=== PATIENT | male | born 1950 | race Caucasian/White ===

== ENCOUNTER 2018-08-09 07:11 | Day surgery (SDC) | payer OTHER ==
[~2018-08-09 07:11] MED LIST: CEFAZOLIN/SWI 2gm 2 GM/20 ML SYR IV SCH
[2018-08-09] MEDS ORDERED: Ringers Lactate 1,000 ML IV ONE ×3 (07:32→12:32)
[2018-08-09] MEDS ORDERED: BUPIVACA 0.25%/EPI 0.0005% MDV 50 ML VIAL ONE (08:30)
[2018-08-09] MEDS ORDERED: MIDAZOLAM HCL 2 MG/2 ML INJ ONE ×2 (08:33→12:05)
[2018-08-09] MEDS ORDERED: PROPOFOL 200 MG/20 ML VIAL IV ONE (08:37)
[2018-08-09] MEDS ORDERED: FENTANYL CITR 100 MCG/2 ML ONE ×2 (08:38→09:51)
[2018-08-09] MEDS ORDERED: LIDOCAINE 2% MPF 5 ML VIAL ONE (08:38)
[2018-08-09] MEDS ORDERED: ROCURONIUM 50 MG/5 ML VIAL IV ONE ×3 (08:39→09:53)
[2018-08-09] MEDS ORDERED: ONDANSETRON HCL 40 MG/20 ML VIAL ONE (08:39)
[2018-08-09] MEDS ORDERED: EPHEDRINE SULF 50 MG/10 ML SYR ONE (09:57)
[2018-08-09] MEDS ORDERED: GLYCOPYRROLATE 0.2 MG/ML SYR ONE ×2 (11:37→12:56)
[2018-08-09] MEDS ORDERED: NEOSTIGMINE 1 MG/ML -5 ML SYRINGE ONE (11:37)
--- NOTE | 2018-08-09 11:45 | P.OP ---
Cad Engineer: Viraj Dai Preoperative diagnosis: Bilateral Recurrent Inguinal Hernias Postoperative diagnosis: Bilateral Recurrent Inguinal Hernias Primary procedure: Open Repair of Bilateral Recurrent Inguinal Hernias Anesthesia: GETA + Local Estimated blood loss: <10cc Specimen: Left hernia sac, cord lipoma Findings: Large Bilateral inguinal hernias, left with sigmoid colon Complications: None Transferred to: Recovery Room Condition: Good
[2018-08-09] MEDS: MEPERIDINE HCL 50 MG/ML AMP ONE ×2 (12:28→12:34)
[2018-08-09] MEDS ORDERED: ALBUTEROL 2.5 MG/3 ML NEB SOL ONE (12:39)
[2018-08-09] MEDS ORDERED: MEPERIDINE HCL 50 MG/ML AMP ONE (12:46)
[2018-08-09] MEDS ORDERED: KETOROLAC 30 MG/ML INJ ONE (13:20)
[2018-08-09] MEDS ORDERED: HYDROCODONE/APAP 7.5/325 MG TAB ONE (14:21)
--- NOTE | 2018-08-09 22:20 | OP ---
Date of Procedure: 08/09/2018 Surgeon: Mick Clemente MD, Preoperative Diagnosis: Bilateral recurrent inguinal hernias. Postoperative Diagnosis: Bilateral recurrent inguinal hernias. Procedure Performed: Open repair of bilateral inguinal hernias. Anesthesia: General endotracheal plus local with 0.25% Marcaine. Estimated Blood Loss: Less than 2 cc. Specimen: Left hernia sac and left cord lipoma. Findings: Large bilateral inguinal hernias, left greater than right. Left inguinal hernia was a rec urrent with tissue repair in the 1950s by report and the tissue planes were obliterated. There was n o evidence of external oblique aponeurosis and the sigmoid colon was firmly adherent to a large herni a sac. The right inguinal hernia had a smaller indirect inguinal hernia with no abdominal contents c ontained within. Complications: None. Disposition: Transferred to recovery room in good condition. Procedure In Detail: After informed consent was obtained, the patient was brought to the operating r oom, prepped and draped in the usual sterile fashion. After adequate anesthesia was achieved, an are a of the left inguinal region was anesthetized with 0.25% Marcaine with epinephrine, sharply incised and dissection continued down through Camper's fat and Gabriel's fascia where the external oblique apo neurosis should have been. However, this tissue plane had been obscured by scar tissue. I dissected bluntly down to expose a large hernia sac, which contained portions of the sigmoid colon. This was circumferentially dissected and the hernia sac was opened. The hernia defect was found to be quite l arge in an indirect fashion. I then circumferentially dissected the hernia sac from the sigmoid colo n and the spermatic cord and structures from the sigmoid colon as well. I then reduced the sigmoid c olon to the normal anatomic position and placed a [place] under the spermatic cord and structures. T hey were firmly adherent to the anterior surface of the sigmoid colon, however, and were difficult to dissect at this time. However, I was able to do so without compromising the vasculature and the vas deferens during the dissection. After placing the patient in steep Trendelenburg, I was able to red uce the sigmoid colon to the normal anatomic position and all preperitoneal fat to the normal anatomi c position after removing the hernia sac and a cord lipoma. I then finger swept the area in the prep eritoneal space and got the large Bard Marlex mesh plug and patch hernia repair system and placed the plug into the preperitoneal space, securing it circumferentially to the shelving edge of the fascia over the pubic tubercle as well as the posterior rectus sheath on the medial aspect and circumferenti ally around to the shelving edge with good approximation of the tissues. The patient was then return ed to the normal anatomic position and the mesh was found to be in good position without any addition al protrusion of the abdominal contents. I digitized the area multiple times, irrigated copiously an d suctioned it dry. The stitch use was an 0 PDS suture and once again it was secured in an interrupt ed fashion. I got the large hernia patch system and secured it to the fascia over the pubic tubercle overlying the previous mesh and securing it to both medial and lateral shelving edges using the same said 0 PDS suture in an interrupted fashion now. The deep inguinal ring was then reconstituted usin g the patch system without compromise of the vasculature or the spermatic cord structures. The testi samra was then reduced to the normal anatomic position and the mesh was found to be in good position. I then irrigated the area once again and closed Camper's fat and Gabriel's fascia over the top on bloc k using a 3-0 Vicryl in a running fashion. I then placed deep dermal sutures in an interrupted fashi on using the same set 3-0 Vicryl suture and the skin was closed with a 4-0 Monocryl in a running fash ion. Dermabond placed over the top. Attention was then turned to the right inguinal region. Simila rly, this area was anesthetized, sharply incised down through Camper's fat and Gabriel's fascia. Elec trocautery was used to achieve hemostasis down to the area where the external oblique aponeurosis maria eugenia uld have been. However, once again, this was not encountered. I continued dissection to easily expo se the spermatic cord and structures. An indirect inguinal hernia was appreciated at this time of me dium size. I dissected it free from the spermatic cord and structures and reduced into the normal an atomic position without the need for opening of the hernia sac. I then placed the hernia plug system in a similar fashion, although this was a medium plug placed in the preperitoneal space after finger sweep of the area. I secured this circumferentially around with good approximation of the tissues w ith the same said interrupted 0 PDS suture and had good approximation of the tissues without compromi se to the spermatic cord and structures. I then turned attention to the patch. The medium patch was placed on the fascia of the pubic tubercle and secured at this point, as well as the medial and late ral shelving edges and the deep inguinal ring was reconstituted in a similar fashion. The area was c opiously irrigated once again and the Camper's fat and Gabriel's fascia were closed over the top on bl ock using a 3-0 Vicryl in a running fashion. The deep dermal layer was then closed with an interrupt ed 3-0 Vicryl in interrupted fashion and the subcutaneous layer was closed with 4-0 Monocryl in a run maggie fashion. Dermabond placed over the top. The patient tolerated the procedure well without evide nce of complication, transferred to the PACU in good condition. All counts were correct at the end o f the case. ESTRADA/JACKY Voice ID: [id number] Report ID: [id number]
== END 2018-08-09 15:15 | disposition home or self-care (01) ==
LOC: OR 07:11
PROVIDERS: ATTEND Surgery
PROC: 0YUA0JZ Supplement Bilateral Inguinal Region with Synthetic Substitute, Open Approach (ICD-10-PCS; principal; 2018-08-09 08:30)
DX: K40.21 Bilateral inguinal hernia, without obstruction or gangrene, recurrent (principal); I48.2 Chronic atrial fibrillation; I10 Essential (primary) hypertension; J44.9 Chronic obstructive pulmonary disease, unspecified; G47.33 Obstructive sleep apnea (adult) (pediatric); G25.81 Restless legs syndrome; F17.210 Nicotine dependence, cigarettes, uncomplicated; Z79.01 Long term (current) use of anticoagulants; Z86.73 Personal history of transient ischemic attack (TIA), and cerebral infarction without residual deficits; Z80.9 Family history of malignant neoplasm, unspecified; Z83.3 Family history of diabetes mellitus; Z82.49 Family history of ischemic heart disease and other diseases of the circulatory system
CPT/HCPCS: 49520; 88302; J0690; J2175 ×2; J2250 ×2; J2405; J2710; J3010 ×2; J2704

== ENCOUNTER 2019-03-07 07:10 | Day surgery (SDC) | payer OTHER ==
[2019-03-07] MEDS ORDERED: CEFAZOLIN/SWI 2gm 2 GM/20 ML SYR ONE (07:39)
[2019-03-07] MEDS ORDERED: Ringers Lactate 1,000 ML IV ONE ×2 (07:39→11:37)
[2019-03-07] MEDS ORDERED: FENTANYL CITR 100 MCG/2 ML ONE (07:43)
[2019-03-07] MEDS ORDERED: MIDAZOLAM HCL 2 MG/2 ML INJ ONE ×2 (07:43→12:43)
[2019-03-07] MEDS ORDERED: PROPOFOL 200 MG/20 ML VIAL IV ONE (07:43)
[2019-03-07] MEDS ORDERED: LIDOCAINE 2% MPF 5 ML VIAL ONE ×2 (07:44→11:25)
[2019-03-07] MEDS ORDERED: ALBUTEROL INHALER 60 PUFF/8 GM IH ONE (07:45)
[2019-03-07] MEDS ORDERED: BUPIVACA 0.25%/EPI 0.0005% MDV 50 ML VIAL ONE (08:11)
[2019-03-07] MEDS ORDERED: EPHEDRINE SULF 50 MG/ML VIAL ONE (08:49)
--- NOTE | 2019-03-07 11:40 | P.OP ---
Preoperative diagnosis: Recurrent Right inguinal hernia Postoperative diagnosis: Recurrent Right inguinal hernia Primary procedure: Open Repair of Recurrent Right inguinal hernia Anesthesia: GETA + Local Estimated blood loss: <10cc Specimen: mesh Findings: Significant Scar, tissue tore adjacent to mesh Complications: None Implants: Large Bard Perfix Plug and Patch Mesh Transferred to: Recovery Room Condition: Good
[2019-03-07] MEDS: MEPERIDINE HCL 25 MG/0.5 ML ONE ×4 (11:49→12:10)
[2019-03-07] MEDS: FENTANYL CITR 100 MCG/2 ML ONE ×2 (12:50→13:00)
[2019-03-07] MEDS ORDERED: METHOCARBAMOL 1,000 MG in NA CHLORIDE 0.9% 100 ML IV ONE (13:30)
--- NOTE | 2019-03-07 23:44 | OP ---
Date of Procedure: 03/07/2019 Surgeon: Mick Clemente MD, Preoperative Diagnosis: Recurrent right inguinal hernia. Postoperative Diagnosis: Recurrent right inguinal hernia. Procedures Performed: 1.Open repair of right recurrent inguinal hernia. 2.Excision of left perineal skin tag. Anesthesia: General endotracheal plus local. Estimated Blood Loss: Less than 10 cc. Specimen: Mesh from previous surgery. Findings: 1.Significant scar tissue in the area and inflammatory response to mesh. 2.It appears that the plug system had pulled laterally and allowed the hernia to recur as the tissue had torn on the lateral aspect allowing the hernia recurrence. This was adjacent to the previous me sh. Complications: None. Implants: Large Bard PerFix plug and patch mesh system. Disposition: Transferred to recovery room in good condition. Procedure In Detail: After informed consent was obtained, the patient was brought to the operating r oom, prepped and draped in the usual sterile fashion. After adequate anesthesia was achieved, an are a of the right inguinal region through the previous scar was incised with a 10-blade down to subcutan eous tissues. Dissection continued down through Camper fat and Gabriel fascia to the level of externa l oblique aponeurosis, which was essentially obliterated at this time. The ilioinguinal nerve was no t identified. The spermatic cord structures however were encircled and identified quite readily. Af ter this was encircled with a Dawson, dissection continued down toward the deep inguinal ring. Afte r the deep inguinal ring was inspected, a defect was noted on the lateral aspect where the previous p lug system was placed and it appears that the mesh had extruded but was still maintained on the media l aspect, almost like a flapping door type opening with a hernia recurrence. This hernia was then re duced back to the normal anatomic position after careful dissection and removal of previous mesh from the spermatic cord and structures as well as the previously placed PerFix plug system were removed. The hernia was then cleansed circumferentially until a nice preperitoneal space was identified as a landing zone. A large Bard PerFix plug system was brought and hydrated appropriately, and 4 anchorin g sutures were placed circumferentially around the deep inguinal ring, to the fascia circumferentiall y. The PerFix plug system was then placed through this ring and secured at this time with the force sutures and it was imbricated over the top by securing the tails of the sutures after being tied down to the mesh after it was flat in the preperitoneal position. At this time, the patch system was the n brought in, hydrated appropriately, sized appropriately for the spermatic cord structures. The quiana p inguinal ring was reconstructed using 0 PDS on the medial and lateral shelving edges beginning at t he conjoined tendon. Both medial and lateral shelving edges were secured using the above-stated 0 PD S suture with good approximated tissues. The area was copiously irrigated multiple times, was comple tely dry and a 3-0 Vicryl was used to close the Camper fat, Gabriel fascia en bloc over the top includ ing the remnant of the external oblique aponeurosis with good approximation. The skin was then irrig ated once again and closed with a 4-0 Monocryl in a running fashion, Dermabond placed over top. The patient tolerated the procedure well. At this point, the patient then had a skin tag on the left asp ect of the perineum which was cleansed once again, trimmed with a Metzenbaum scissor and cleansed. T here was no bleeding and no hemostatic maneuvers. A Dermabond was then placed over the top of this a raquel as well. The patient tolerated the procedure well without evidence of complication and transferr ed to the PACU in good condition. All counts were correct at the end of the case. ESTRADA/JACKY Voice ID: [id number] Report ID: [id number]
== END 2019-03-07 15:10 | disposition home or self-care (01) ==
LOC: OR 07:10
PROVIDERS: ATTEND Surgery
PROC: 0HB9XZZ Excision of Perineum Skin, External Approach (ICD-10-PCS; 2019-03-07)
PROC: 0YU50JZ Supplement Right Inguinal Region with Synthetic Substitute, Open Approach (ICD-10-PCS; principal; 2019-03-07 08:30)
DX: K40.91 Unilateral inguinal hernia, without obstruction or gangrene, recurrent (principal); D22.5 Melanocytic nevi of trunk; E55.9 Vitamin D deficiency, unspecified; I48.2 Chronic atrial fibrillation; I10 Essential (primary) hypertension; J44.9 Chronic obstructive pulmonary disease, unspecified; N40.0 Benign prostatic hyperplasia without lower urinary tract symptoms; G47.33 Obstructive sleep apnea (adult) (pediatric); G25.81 Restless legs syndrome; F17.210 Nicotine dependence, cigarettes, uncomplicated; Z79.01 Long term (current) use of anticoagulants; Z79.899 Other long term (current) drug therapy; Z86.73 Personal history of transient ischemic attack (TIA), and cerebral infarction without residual deficits
CPT/HCPCS: 49520; 11200; 88300; 88305; J2704; J2250 ×2; J3010 ×2; J2175 ×2; J0690; J2800

== ENCOUNTER 2019-06-11 17:47 | Emergency (ER) | payer OTHER ==
[2019-06-11] MEDS ORDERED: NA CHLORIDE 0.9% 1,000 ML ONE (18:18)
[2019-06-11] MEDS ORDERED: KETOROLAC 30 MG/ML INJ ONE (18:18)
[2019-06-11] MEDS ORDERED: ONDANSETRON 4 MG/2 ML VIAL ONE (18:18)
[2019-06-11 18:26] LABS: Urine Blood NEGATIVE (NEG); Urine Glucose NEGATIVE (NEG); Urine Protein NEGATIVE (NEG); Urine Specific Gravity >1.030 (1.005-1.030); Urine pH 5.5 (5.0-7.0)
[2019-06-11 18:32] LABS: Basophils % 0.5 % (0-1.3); Hematocrit 44.5 % (39.6-49.0); Lymphocytes % 26.7 % (15.3-44.8); MPV 9.7 fL (7.6-11.3); RBC Red Blood Cell Count 4.73 M/uL (4.33-5.43)
[2019-06-11 18:51] LABS: Albumin 4.1 g/dL (3.4-5.0); Bilirubin Total 0.5 mg/dL (0.2-1.0); Protein, Total 7.8 g/dL (6.4-8.2)
--- NOTE | 2019-06-11 18:59 | RAD REPORT ---
EXAM DESCRIPTION: CT - Stone Protocol - 06/11/2019 6:30 pm CLINICAL HISTORY: Abdominal pain, left flank pain COMPARISON: CT January 2019 TECHNIQUE: Axial 5 mm thick images were obtained without oral or IV contrast. The qtdkh-gb-iwck span s the entirety of the system including uppermost abdomen and lung bases. All CT scans are performed using dose optimization technique as appropriate and may include automated exposure control or mA/KV adjustment according to patient size. FINDINGS: No hydronephrosis is present and no obstructing ureteral calculi. No suspicious renal mass es. Isodense masses and pyelonephritis are not excluded on a stone protocol CT scan. Bilateral nonobs tructing calyx calculi are present 3 mm or less in size. Cyst in the lateral right kidney is unchange d. Minimal perinephric stranding is present. Urinary bladder is fully contracted limiting assessment. No bladder calculi. Numerous pelvic phleboliths are present. No significant adrenal finding. Imaged portions of the liver, spleen and pancreas show no suspicious findings on non-contrast imaging . No gallbladder or biliary tree abnormality identified. No suspicious bowel findings. Appendix is normal. No active GI process seen. No mass or bulky lymphadenopathy. Patient has significant scar tissue formation at left inguinal nia ia repair site. There is a similar soft tissue scarring at the right inguinal hernia repair site whic h is new from January 2019. There appears to be a minimal fluid component on the right. No free air or pneumatosis. No abnormal free fluid. No significant bony abnormality. IMPRESSION: No hydronephrosis or obstructing calculi. Patient has nonobstructing calyx calculi. Isodense masses and pyelonephritis are not excluded on a stone protocol study. Cystitis is not exclud ed. Prominent scarring changes at each inguinal canal hernia repair site. Right-sided changes are new fro m the January comparison. There may be a small quantity of fluid trapped near the origin of the right i nguinal canal. No acute GI process. Gallbladder, biliary tree and pancreas without acute finding. Isodense masses and pyelonephritis are not excluded on stone protocol technique.
--- NOTE | 2019-06-11 19:42 | EDPHYS ---
Physician Documentation [facility] Name: Andrea Rausch Age: 68 yrs Sex: Male : 1950 Arrival Date: 06/11/2019 Time: 17:49 Bed 26 Private MD: Bradley Baig ED Physician Jordan Deng HPI: 06/11 18:19 This 68 yrs old Male presents to ER via Ambulatory with complaints of ps1 Possible Kidney Stone, Hernia. 18:19 patient has a history of stones and bilateral inguinal hernia repair. Now presenting ps1 with left flank pain. Described as throbbing, fluctuating, radiating to groin. Previously seen by Tj and had litho appx 10 years ago. No fever or urinary complaints. Hx of chronic infection of right leg that he takes bactrim for daily. . Historical: - Allergies: 18:00 No Known Allergies; hb - Home Meds: 18:00 Coreg Oral [Active]; Hydrochlorothiazide Oral [Active]; Eliquis oral oral [Active]; hb Tramadol Oral [Active]; - PMHx: 18:00 Hypertension; hb - PSHx: 18:00 Knee - Right; Back; Hernia repair; hb - Immunization history:: Adult Immunizations up to date. - Social history:: Smoking status: Patient/guardian denies using tobacco. - Ebola Screening: : No symptoms or risks identified at this time. ROS: 18:19 Constitutional: Negative for fever, chills, and weight loss, Eyes: Negative for injury, ps1 pain, redness, and discharge, Cardiovascular: Negative for chest pain, palpitations, and edema, Respiratory: Negative for shortness of breath, cough, wheezing, and pleuritic chest pain, Abdomen/GI: Negative for abdominal pain, nausea, vomiting, diarrhea, and constipation, MS/Extremity: Negative for injury and deformity, Skin: Negative for injury, rash, and discoloration, Neuro: Negative for headache, weakness, numbness, tingling, and seizure. 18:19 : Positive for flank pain. Exam: 18:19 Constitutional: This is a well developed, well nourished patient who is awake, alert, ps1 and in no acute distress. Head/Face: Normocephalic, atraumatic. Eyes: Pupils equal round and reactive to light, extra-ocular motions intact. Lids and lashes normal. Conjunctiva and sclera are non-icteric and not injected. Cardiovascular: Regular rate and rhythm. No gallops, murmurs, or rubs. Normal PMI, no JVD. No pulse deficits. Respiratory: Lungs have equal breath sounds bilaterally, clear to auscultation and percussion. No rales, rhonchi or wheezes noted. No increased work of breathing, no retractions or nasal flaring. Abdomen/GI: Soft, non-tender, with normal bowel sounds. No distension or tympany. No guarding or rebound. No evidence of tenderness throughout. Back: No spinal tenderness. No costovertebral tenderness. Full range of motion. MS/ Extremity: Pulses equal, no cyanosis. Neurovascular intact. Full, normal range of motion. Neuro: Awake and alert, GCS 15, oriented to person, place, time, and situation. Cranial nerves II-XII grossly intact. Sensory grossly intact. Vital Signs: 18:00 BP 132 / 97; Pulse 70; Resp 16; Temp 97.9; Pulse Ox 94% on R/A; Weight 127.01 kg; hb Height 6 ft. 3 in. (190.50 cm); Pain 9/10; 19:33 BP 115 / 85; Pulse 69; Resp 18; Pulse Ox 94% on R/A; mg2 20:15 BP 118 / 86; Pulse 71; Resp 15; Pulse Ox 96% on R/A; rv 18:00 Body Mass Index 35.00 (127.01 kg, 190.50 cm) hb MDM: 18:21 Patient medically screened. ps1 19:37 Data reviewed: vital signs, nurses notes, lab test result(s), radiologic studies, and ps1 as a result, I will discharge patient. Counseling: I had a detailed discussion with the patient and/or guardian regarding: the historical points, exam findings, and any diagnostic results supporting the discharge/admit diagnosis, the presence of at least one elevated blood pressure reading (>120/80) during this emergency department visit, lab results, radiology results, the need for outpatient follow up, to return to the emergency department if symptoms worsen or persist or if there are any questions or concerns that arise at home. ED course: Abnormal CT findings of kidney. No obstructing stone. Urine clean. Needs OP Ultrasound. Follow up with PCP or Dr. Spencer. Stable for la. Home with flomax, anaprox, zofran.. 06/11 18:14 Order name: CBC with Diff ps1 06/11 18:14 Order name: CMP; Complete Time: 19:31 ps1 06/11 18:14 Order name: CT Stone Protocol ps1 06/11 18:21 Order name: Urine Dipstick--Ancillary (enter results); Complete Time: 19:31 em1 06/11 18:14 Order name: Urine Dipstick-Ancillary (obtain specimen); Complete Time: 18:20 ps1 06/11 18:16 Order name: IV Start; Complete Time: 18:28 tw2 Administered Medications: 18:20 Drug: Zofran 4 mg Route: IVP; Site: right antecubital; tw2 20:14 Follow up: Response: No adverse reaction rv 18:20 Drug: NS 0.9% 1000 ml Route: IV; Rate: 1 bolus; Site: right antecubital; tw2 20:14 Follow up: IV Status: Completed infusion; IV Intake: 1000ml rv 18:22 Drug: TORadol - Ketorolac 15 mg Route: IVP; Site: right antecubital; tw2 20:14 Follow up: Response: No adverse reaction; Pain is decreased rv 20:13 Drug: [place] (7.5 mg-325 mg) 1 tabs {Note: rass 0.} Route: PO; rv 20:14 Follow up: Response: Medication administered at discharge. rv Disposition: 06/11/19 19:36 Discharged to Home. Impression: Left flank pain, Abnormal CT ( Needs OP Renal US). - Condition is Stable. - Discharge Instructions: Flank Pain, Adult. - Prescriptions for Anaprox DS 550 mg Oral Tablet - take 1 tablet by ORAL route every 12 hours As needed; 20 tablet. Zofran 4 mg Oral Tablet - take 1 tablet by ORAL route every 12 hours As needed; 20 tablet. Flomax 0.4 mg Oral Capsule, Sust. Release 24 hr - take 1 capsule by ORAL route once daily 1/2 hour following the same meal each day; 30 capsule. - Medication Reconciliation Form, Thank You Letter, Antibiotic Education, Prescription Opioid Use form. - Follow up: Bradley Baig, ; When: As needed; Reason: Recheck today's complaints, Continuance of care, Re-evaluation by your physician. Follow up: Emergency Department; When: As needed; Reason: Fever > 102 F, Worsening of condition. - Problem is new. - Symptoms have improved. Signatures: Dispatcher [employer] EDMS Ila Lou, HANSEL RN Hattie Ball RN RN tw2 Jordan Deng MD MD ps1 Jayme Chan RN RN rv Corrections: (The following items were deleted from the chart) 20:16 19:36 06/11/2019 19:36 Discharged to Home. Impression: Left flank pain; Abnormal CT ( rv Needs OP Renal US). Condition is Stable. Forms are Medication Reconciliation Form, Thank You Letter, Antibiotic Education, Prescription Opioid Use. Follow up: Bradley Baig; When: As needed; Reason: Recheck today's complaints, Continuance of care, Re-evaluation by your physician. Follow up: Emergency Department; When: As needed; Reason: Fever > 102 F, Worsening of condition. Problem is new. Symptoms have improved. ps1
--- NOTE | 2019-06-11 19:42 | ER ---
Nurse's Notes [facility] Name: Andrea Rausch Age: 68 yrs Sex: Male : 1950 Arrival Date: 06/11/2019 Time: 17:49 Bed 26 Private MD: Bradley Baig Diagnosis: Left flank pain;Abnormal CT ( Needs OP Renal US) Presentation: 06/11 17:57 Presenting complaint: Left flank pain that radiates to bilateral groin and nausea x 3 hb days. Denies fever/urinary s/s. Transition of care: patient was not received from another setting of care. Onset of symptoms was June 09, 2019. Risk Assessment: Do you want to hurt yourself or someone else? Patient reports no desire to harm self or others. Initial Sepsis Screen: Does the patient meet any 2 criteria? No. Patient's initial sepsis screen is negative. Does the patient have a suspected source of infection? No. Patient's initial sepsis screen is negative. Care prior to arrival: None. 17:57 Method Of Arrival: Ambulatory hb 17:57 Acuity: GIACOMO 3 hb Historical: - Allergies: 18:00 No Known Allergies; hb - Home Meds: 18:00 Coreg Oral [Active]; Hydrochlorothiazide Oral [Active]; Eliquis oral oral [Active]; hb Tramadol Oral [Active]; - PMHx: 18:00 Hypertension; hb - PSHx: 18:00 Knee - Right; Back; Hernia repair; hb - Immunization history:: Adult Immunizations up to date. - Social history:: Smoking status: Patient/guardian denies using tobacco. - Ebola Screening: : No symptoms or risks identified at this time. Screenin:01 Abuse screen: Denies threats or abuse. Nutritional screening: No deficits noted. tw2 Tuberculosis screening: No symptoms or risk factors identified. Fall Risk Secondary diagnosis (15 points) impaired mobility. Assessment: 18:04 General: Appears in no apparent distress. Behavior is calm, cooperative, appropriate tw2 for age. Pain: Complains of pain in abdomen. Neuro: Level of Consciousness is awake, alert, obeys commands, Oriented to person, place, time, situation. Cardiovascular: Heart tones S1 S2 Patient's skin is warm and dry. Respiratory: Airway is patent Respiratory effort is even, unlabored, Respiratory pattern is regular, symmetrical, Breath sounds are clear bilaterally. GI: Abdomen is round obese, Bowel sounds present X 4 quads. Abd is soft X 4 quads Reports lower abdominal pain, nausea. GI: "it started in my groin area and now its on both sides of my back". : No signs and/or symptoms were reported regarding the genitourinary system. EENT: No signs and/or symptoms were reported regarding the EENT system. Derm: No signs and/or symptoms reported regarding the dermatologic system. Musculoskeletal: Range of motion: intact in all extremities. Vital Signs: 18:00 BP 132 / 97; Pulse 70; Resp 16; Temp 97.9; Pulse Ox 94% on R/A; Weight 127.01 kg; hb Height 6 ft. 3 in. (190.50 cm); Pain 9/10; 19:33 BP 115 / 85; Pulse 69; Resp 18; Pulse Ox 94% on R/A; mg2 20:15 BP 118 / 86; Pulse 71; Resp 15; Pulse Ox 96% on R/A; rv 18:00 Body Mass Index 35.00 (127.01 kg, 190.50 cm) hb ED Course: 17:49 Patient arrived in ED. mr 17:50 Bradley Baig DO is Private Physician. mr 17:58 Triage completed. hb 18:00 Arm band placed on. hb 18:01 Hattie Ball RN is Primary Nurse. tw2 18:01 Bed in low position. Call light in reach. websphere message broker developer on. Pulse ox on. NIBP on. tw2 18:13 Jordan Deng MD is Attending Physician. ps1 18:20 Inserted saline lock: 22 gauge in right antecubital area, using aseptic technique. tw2 Blood collected. 18:45 CT Stone Protocol In Process Unspecified. EDMS 19:14 Report given to HANSEL Vicente. tw2 19:33 Bradley Baig DO is Referral Physician. ps1 20:15 No provider procedures requiring assistance completed. IV discontinued, intact, rv bleeding controlled, No redness/swelling at site. Pressure dressing applied. Administered Medications: 18:20 Drug: Zofran 4 mg Route: IVP; Site: right antecubital; tw2 20:14 Follow up: Response: No adverse reaction rv 18:20 Drug: NS 0.9% 1000 ml Route: IV; Rate: 1 bolus; Site: right antecubital; tw2 20:14 Follow up: IV Status: Completed infusion; IV Intake: 1000ml rv 18:22 Drug: TORadol - Ketorolac 15 mg Route: IVP; Site: right antecubital; tw2 20:14 Follow up: Response: No adverse reaction; Pain is decreased rv 20:13 Drug: [place] (7.5 mg-325 mg) 1 tabs {Note: rass 0.} Route: PO; rv 20:14 Follow up: Response: Medication administered at discharge. rv Intake: 20:14 IV: 1000ml; Total: 1000ml. rv Outcome: 19:36 Discharge ordered by MD. ps1 20:15 Discharged to home ambulatory. rv 20:15 Condition: good 20:15 Discharge instructions given to patient, family, Instructed on discharge instructions, follow up and referral plans. medication usage, Demonstrated understanding of instructions, follow-up care, medications, Prescriptions given X 2. 20:16 Patient left the ED. rv Signatures: Dispatcher [employer] VINCEWA Gladys Gilbert Heather, RN RN Hattie Ball RN RN tw2 Jordan Deng MD MD ps1 Flakito Alexis RN RN mg2 Jayme Chan RN RN rv
[2019-06-11] MEDS ORDERED: HYDROCODONE/APAP 7.5/325 MG TAB ONE (20:06)
== END 2019-06-11 20:16 | disposition home or self-care (01) ==
LOC: ER 17:47
DX: R93.89 Abnormal findings on diagnostic imaging of other specified body structures (principal); I10 Essential (primary) hypertension
CPT/HCPCS: 96361; 85025; 36415; 81003; 80053; 76377; 74176; 96375; 96374; 99284; J7030; J2405